=== PATIENT | male | born 1985 | race Caucasian/White ===

== ENCOUNTER 2021-11-08 16:17 | Emergency (ER) | payer SELFPAY ==
[~2021-11-08] VITALS: Ht 170.2 cm; Wt 63.5 kg
[2021-11-08 16:21] VITALS: BP 131/77
--- NOTE | 2021-11-08 16:38 | NUR ---
39 y/o male, pt was found trespassing, on arrival to [place], pt heart rate was 138 at facility. needs to be 119 or below. pt denies any pain at this time. denies n/v/d. skin is pink/warm/dry; aaox4 with even and steady gait; lungs clear bl; hr even and tachy; pt denies any fever, cp, sob, or cough at this time; patient states pain of 0/10 at this time; patient positioned for comfort; ermd made aware of pt status. pmh: acid reflux nka med: acid reflux medication
--- NOTE | 2021-11-08 16:51 | NUR ---
PATIENT LEFT WITHOUT BEING SEEN BY DR. SUE. NO FURTHER CARE PROVIDED FOR PATIENT. PT ESCORTED OUT WITH PD.
== END 2021-11-08 16:51 | disposition left against medical advice (07) ==
LOC: MED 16:17
DX: R00.0 Tachycardia, unspecified (principal); Z53.21 Procedure and treatment not carried out due to patient leaving prior to being seen by health care provider